=== PATIENT | female | born 1960 | race Caucasian/White ===

== ENCOUNTER → 2016-06-27 | Outpatient (CLI) | payer OTHER ==
--- NOTE | 2016-06-27 18:15 | DX ---
Lumbar Spine, 2 standing views History: Pain after high impact trauma Comparison: May 07, 2014 Findings: There is stable sclerosis and osteophyte formation involving the anterior-inferior corner o f L2. There is a stable minimal L1 compression deformity. Other vertebrae are stable without new comp ression deformity. Disk spaces maintain normal height. There is no spondylolisthesis. There is chroni c atherosclerotic calcification of the aorta. At the upper corner of the exam there appears to be a 2 .5 cm right lung base thin walled cyst versus gas-containing lesion in the liver. Impression:1. Stable lumbar spine since April 2014. 1. Right base lung cyst (not seen on chest x-ray August 2014) vs suspicious gas-containing lesion in t he dome of the liver. Consider CT of the chest and abdomen for further evaluation. Results called to Dr. Benavidez at 612 p.m.
--- NOTE | 2016-06-27 18:23 | DX ---
Thoracic Spine, 2 views History: Pain post cross training exercise Comparison: September 09, 2014 There is a new mild-moderate T9 compression fracture. There are stable old minor compressions of T6, T7 and T8. There is a chronic kyphosis. Impression: New T9 compression. Consider MRI to evaluate acuity and DEXA. Results discussed with Dr. Benavidez.
== END ==
LOC: FIMAGING 16:51
PROVIDERS: ATTEND Family Medicine
DX: S22.070A Wedge compression fracture of T9-T10 vertebra, initial encounter for closed fracture (principal); Y93.B9 Activity, other involving muscle strengthening exercises

== ENCOUNTER → 2016-06-30 | Outpatient (CLI) | payer OTHER ==
--- NOTE | 2016-06-30 16:43 | MR ---
MRI Thoracic Spine Without Contrast History: Back pain. Pain after crosstraining exercise. Abnormal x-ray. Comparison: Thoracic spine x-ray 27 June 2016. Technique: MRI is performed of the thoracic spine using a 3 [employer] MRI system. Sagittal, coronal, and axial imaging was obtained with standard imaging sequences. Findings: There is mild anterior wedge compression deformity of the T10 vertebral body involving the superior endplate anteriorly. There is bone marrow edema indicating this is acute. Degenerative endpl ate change is seen at T9-T10. There is mild chronic anterior wedge compression deformity of T9. No si gnificant spondylolisthesis. There is mild disk desiccation at T8-T9 and T9-T10. Thoracic spinal cord is normal in size and signal intensity. No significant spinal canal or neural foraminal encroachment . No significant disk bulge, protrusion, or extrusion. Impression: 1. Mild acute anterior wedge compression deformity of T10. Consider consultation with interventional radiology for kyphoplasty. 2. Mild chronic anterior wedge compression deformity of T9.
== END ==
LOC: FIMAGING 14:23
PROVIDERS: ATTEND Family Medicine
DX: S22.070A Wedge compression fracture of T9-T10 vertebra, initial encounter for closed fracture (principal)

== ENCOUNTER → 2016-06-30 | Outpatient (CLI) | payer OTHER ==
--- NOTE | 2016-06-30 11:02 | DX ---
DEXA Bone Mineral Densitometry Clinical Indications: Postmenopausal, T9 compression fracture, kidney stones, HRT Comparison: None Technique: Bone Mineral Densitometry (BMD) by Dual Energy X-Ray Absorptiometry (DEXA) was performed utilizing the [employer] scanner. The lumbar spine was evaluated in the AP projection. The bilat eral hips and forearm were evaluated in the AP projection. Vertebral fracture assessment was also pe rformed. AP Lumbar Spine: The L3 and L4 vertebral bodies were evaluated. L1 and L2 are excluded due to poste rior element degenerative sclerosis. BMD: 0.857 gm/cm2 T-score: -2.9 SD Z-score: -2.3 SD AP Left Hip: Neck BMD: 0.736 gm/cm2 T-score: -2.2 SD Z-score: -1.3 SD AP Right Hip: Neck BMD: 0.729 gm/cm2 T-score: -2.2 SD Z-score: -1.3 SD AP Left Forearm, 05/30: BMD: 0.875 gm/cm2 T-score: 0 SD Z-score: 0.5 SD Vertebral Fracture Assessment: There are old minor compressions of T7, T8, T9, T10 and T12... Athero sclerotic calcification of the abdominal aorta likely increases lumbar BMD. Conclusion: Considering the lowest measured site, the patient is osteoporotic and at increased risk for fracture. Considering the negative Z score in the lumbar spine coupled with a history of recent T 9 fracture and kidney stones, it would be worthwhile to exclude hyperparathyroidism and other common causes of hypercalciuria along with other secondary causes for bone loss. This patient may be a good candidate for pharmacologic intervention. The ten year FRAX risk for any major osteoporotic fracture is 15.3% and for a hip fracture is 2.6%. Recommend follow-up DEXA scanning in one year for reevaluation and to assess the rate of bone loss in this patient
== END ==
LOC: BRMIMAGING 10:02
PROVIDERS: ATTEND Family Medicine
DX: M81.0 Age-related osteoporosis without current pathological fracture (principal); Z79.890 Hormone replacement therapy; Z78.0 Asymptomatic menopausal state

== ENCOUNTER 2016-07-05 11:09 | Day surgery (SDC) | payer OTHER ==
[2016-07-05] MEDS ORDERED: DEXAMETHASONE 10 MG/ML VIAL IVP ONE (11:29)
[2016-07-05] MEDS ORDERED: NS 1,000 ML IV SCH (11:30)
[2016-07-05] MEDS ORDERED: DEXMEDETOMIDINE HCL 200 MCG in NS 50 ML IV SCH (12:00)
[2016-07-05] MEDS ORDERED: CLINDAMYCIN 600 MG/DEXTROSE 50 ML IV ONE (12:00)
[2016-07-05 12:09] LABS: % IMMATURE GRANULYOCYTES 0.4 % (0.0-1.1); ABSOLUTE IMMATURE GRANULOCYTES 0.03 10^3/uL (0.00-0.10); ADD DIFF? NO; ADD MORPH? NO; ADD SCAN? NO; ATYPICAL LYMPHOCYTE FLAG 10 (0-99); FRAGMENT RBC FLAG 0 (0-99); HEMATOCRIT 43.5 % (38.0-47.0); HEMOGLOBIN 14.4 g/dL (12.6-16.3); LEFT SHIFT FLG 0 (0-99); LIPEMIA HEMOLYSIS FLAG 80 (0-99); MEAN CELL HEMOGLOBIN 30.6 pg (27.9-34.1); MEAN CELL HEMOGLOBIN CONCENTR. 33.1 g/dL (32.4-36.7); MEAN CELL VOLUME 92.6 fL (81.5-99.8); MEAN PLATELET VOLUME 9.3 fL (8.7-11.7); PLATELET CLUMPS FLAG 0 (0-99); PLATELET COUNT 270 10^3/uL (150-400); RED CELL DISTRIBUTION WIDTH 13.9 % (11.5-15.2)
[2016-07-05 12:27] LABS: PROTIME(PATIENT) 13.1 SEC (12.0-15.0)
[2016-07-05] MEDS ORDERED: FLUMAZENIL 0.5 MG/5 ML MDV IVP ONE (13:04)
[2016-07-05] MEDS ORDERED: NALOXONE HCL 0.4 MG/ML INJ ONE (13:04)
[2016-07-05] MEDS ORDERED: fentaNYL 100 MCG/2 ML INJ ONE (13:05)
[2016-07-05] MEDS ORDERED: MIDAZOLAM 2 MG/2 ML VIAL ONE (13:05)
[2016-07-05] MEDS ORDERED: BUPIVACAINE 0.5% 30 ML SDV ONE (14:12)
[2016-07-05] MEDS ORDERED: LIDOCAINE 1% 30 ML SDV ONE (14:12)
[2016-07-05] MEDS ORDERED: oxyCODONE IR 5 MG TAB PO PRN (16:25)
[2016-07-05] MEDS ORDERED: oxyCODONE IR 5 MG TAB ONE (16:27)
--- NOTE | 2016-07-05 19:06 | IR ---
T10 percutaneous vertebral augmentation Indication: The patient had acute injury doing a CrossFit class 3 weeks ago. Acute onset of severe u pper back pain, that has not changed. Pain ranges from 4-10 out of 10 depending on activity. The wors t activity that instigates pain is rolling left to right while in supine position, and sitting up fro m supine position. Patient had a bone density study recently, showing that she is osteoporotic. MRI of the thoracic spin e confirms T10 compression fracture. There is a little bit of bone marrow edema along the inferior en dplate of T9, however, this is thought to be caused by subjacent inflammation and degenerative disk d isease. Informed consent: Obtained from the patient. Risks and benefits were discussed. Crosscutting Measure: Patient's current list of medications including all known prescriptions, over- the-counters, herbals, and vitamin/mineral/dietary supplements are reviewed. Medications' name, dosa ge, frequency, and route of administration are confirmed. Patient is a non-smoker. Prophylactic Antibiotic: Clindamycin 600 mg was ordered and administered for antimicrobial prophylaxi s. Patient is ALLERGIC to penicillin. Discontinuation of Prophylactic Antibiotic: Prophylactic antibiotic was given within 4 hours prior t o incision. There was an order to discontinue the antibiotic within 24 hours of procedure end time. VTE Prophylaxis: VTE prophylaxis is not medically necessary for this procedure. Technique: Patient is placed in prone position. A "timeout" procedure was performed to identify the correct patient and the correct procedure. 1% Xylocaine was used for local anesthetic. All elemen ts of maximal sterile barrier technique including cap, mask, sterile gown, sterile gloves, large ster ile sheet, hand hygiene, and 2% chlorhexidine for cutaneous antisepsis, followed. When ultrasound is used, sterile gel and probe covers are used. Via left transpedicular approach, DeFine kyphoplasty needle was inserted into the T10 vertebral body. Augmentation was performed using a curetting device, traversing across the contralateral side of the vertebral body. 5 mL of cement was subsequently injected into the vertebral body after the curetting and bone augment ation. There is excellent fill of the lower two thirds of the vertebral body. There is a little bit o f the fill of the superior one third, and then the cement extravasated into the T9-T10 intervertebral disk space. Procedure was then stopped. I think there is a sufficient amount of cement in the superi or aspect of the vertebral body to alleviate pain. There is some extravasation of the cement posteriorly, but that is mostly confined within the posteri or cortex of T10. Patient tolerated the procedure well. Medication: Precedex, 0.2 mcg/kg/h, Versed 2.5 mg, fentanyl 150 mcg, Decadron 10 mg. 1:30 - 3:03 p.m. Fluoroscopy: 16.3 minutes, 26 images Impression: 1. T10 vertebral augmentation performed. 2. Presenting pain was somewhat reproduced during the procedure. I am hopeful that this will help the patient significantly. Plan: Recovery for 2 hours. DC home later today.
== END 2016-07-05 17:00 | disposition home or self-care (01) ==
LOC: FIMAGING 11:09
PROVIDERS: ATTEND Family Medicine
PROC: 0PU43JZ Supplement Thoracic Vertebra with Synthetic Substitute, Percutaneous Approach (ICD-10-PCS; principal; 2016-07-05 15:23)
DX: S22.070A Wedge compression fracture of T9-T10 vertebra, initial encounter for closed fracture (principal); Y93.B9 Activity, other involving muscle strengthening exercises; M54.5 Low back pain; M81.0 Age-related osteoporosis without current pathological fracture; E28.319 Asymptomatic premature menopause
CPT/HCPCS: J2250; J2310; J3010

== ENCOUNTER 2016-12-19 08:54 | Emergency (ER) | payer OTHER ==
--- NOTE | 2016-12-19 10:12 | EDPHY ---
H & P Stated Complaint: R knee & shoulder injury with osteoporosis HPI/ROS: Chief complaint: Trip and fall with right shoulder and knee pain History of present illness: This is a 56-year-old female who presents to the emergency department for evaluation after sustaining a trip and fall last night injuring her right shoulder and knee. Patient reports she tripped over her dogs. She reports minimal pain in the shoulder, it is more of a soreness, she is moving it and using it with out difficulty. Her primary concern is her right knee pain. She reports pain on the anterior part of her knee. It makes it difficult to move and ambulate. She denies other associated signs or symptoms including no open wounds, no abnormal coolness or paresthesias in the extremity. She denies trauma to the rest of the body. There were no preceding events such as syncope and there was no loss of consciousness with the fall. Review of systems: A 10 point review of systems was obtained and other than described above was negative - Personal History Current Tetanus/Diphtheria Vaccine: Unsure Current Tetanus Diphtheria and Acellular Pertussis (TDAP): Unsure - Medical/Surgical History Hx Asthma: Yes Hx Chronic Respiratory Disease: No Hx Diabetes: No Hx Cardiac Disease: No Hx Renal Disease: No Hx Cirrhosis: No Hx Alcoholism: No Hx HIV/AIDS: No Hx Splenectomy or Spleen Trauma: No Other PMH: osteoporosis, asthma, nerve damage right leg - Social History Smoking Status: Former smoker Constitutional: Initial Vital Signs Temperature (C) 36.6 C 12/19/16 08:56 Heart Rate 72 12/19/16 08:56 Respiratory Rate 16 12/19/16 08:56 Blood Pressure 126/74 H 12/19/16 08:56 O2 Sat (%) 97 12/19/16 08:56 O2 Delivery Mode Room Air Allergies/Adverse Reactions: Penicillins Allergy (Verified 09/09/14 08:48) Home Medications: Medication Instructions Recorded Hydrocodone/Acetaminophen [Vicodin 1 tab PO Q4-6PRN PRN 09/09/14 5-300 mg Tablet] traZODone [traZODONE 50MG (RX)] 50 mg PO HS 09/09/14 Fiber 1 tab PO DAILY 07/04/16 Fish Oil 1 cap PO DAILY 07/04/16 Hrt Base 1 patch .ROUTE DAILY 07/04/16 Lyrica 50mg (*) 50 mg PO TID 07/04/16 Multivitamin 1 tab PO DAILY 07/04/16 Prilosec 20 mg 20 mg PO DAILY 07/04/16 Vitamin D2 1 tab PO DAILY 07/04/16 Medical Decision Making - Diagnostics Imaging Results: Imaging Impressions Knee X-Ray 12/19/16 09:38 Impression: No acute osseous findings. Shoulder X-Ray 12/19/16 09:38 Impression: No acute findings in the shoulder. Procedures: Procedure: Splint placement. A Velcro knee splint splint was applied. After application of the splint I returned and re-examined the patient. The splint was adequately immobilizing the joint and distal to the splint the patient's circulation and sensation was intact. Patient is given crutches. She is given instructions. She is observed ambulating and states she feels comfortable and appears steady. ED Course/Re-evaluation: Patient seen under the supervision of my secondary supervising physician Dr. Carson Whitney. Patient presents to the emergency department after a mechanical trip and fall injuring her right shoulder and knee. Minimal findings on shoulder. Her knee is tender. Her extremities are neurovascularly intact. X-rays are negative. By history and physical exam no evidence of trauma to other parts of the body. Given persistent knee pain she is placed in a knee immobilizer and given crutches. She is given instructions on how to use them and is ambulated through the emergency department. She states she feels comfortable in the knee immobilizer and using crutches. She is discharged home. She is referred to Orthopedics for recheck. Return precautions are given. Patient voiced understanding and agreement with plan. Differential Diagnosis: Included but not limited to fracture, sprain or strain, contusion, meniscal injury Departure - Departure Disposition: Home, Routine, Self-Care Clinical Impression: Knee pain, Shoulder pain Condition: Good Instructions: Knee Pain (ED) Additional Instructions: Follow-up with orthopedics this week for recheck If symptoms worsen or new symptoms develop return to the emergency department for recheck Referrals: Lauren Benavidez MD [Primary Care Provider] - As per Instructions Adin Vicente MD [Medical Doctor] - As per Instructions
[2016-12-19 11:16] VITALS: BP 122/58; PULSE 82; RESP 18; TEMP 98.2; O2SAT 96
== END 2016-12-19 11:16 | disposition home or self-care (01) ==
DX: S49.91XA Unspecified injury of right shoulder and upper arm, initial encounter (principal); S89.91XA Unspecified injury of right lower leg, initial encounter; J45.909 Unspecified asthma, uncomplicated; Z87.891 Personal history of nicotine dependence; W01.0XXA Fall on same level from slipping, tripping and stumbling without subsequent striking against object, initial encounter
CPT/HCPCS: L1830

== ENCOUNTER → 2017-02-20 | Outpatient (CLI) | payer OTHER | LOC: FIMAGING 10:08 | PROVIDERS: ATTEND Family Medicine | DX: M48.54XA Collapsed vertebra, not elsewhere classified, thoracic region, initial encounter for fracture (principal); M47.894 Other spondylosis, thoracic region; M50.322 Other cervical disc degeneration at C5-C6 level; Z98.890 Other specified postprocedural states ==

== ENCOUNTER → 2017-05-17 | Outpatient (CLI) | payer OTHER | LOC: FIMAGING 14:52 | PROVIDERS: ATTEND Family Medicine | DX: M51.36 Other intervertebral disc degeneration, lumbar region (principal) ==

== ENCOUNTER → 2017-09-13 | Outpatient (CLI) | payer OTHER | LOC: FIMAGING 09:23 | PROVIDERS: ATTEND Family Medicine | DX: M25.561 Pain in right knee (principal); M25.461 Effusion, right knee ==

== ENCOUNTER → 2017-09-18 | Outpatient (CLI) | payer OTHER | LOC: FIMAGING 13:35 | PROVIDERS: ATTEND Nurse Practitioner Women's Health | DX: Z12.31 Encounter for screening mammogram for malignant neoplasm of breast (principal) ==

== ENCOUNTER → 2017-12-06 | Outpatient (CLI) | payer OTHER | LOC: FLAB 10:07 | PROVIDERS: ATTEND Physician Assistant | DX: M79.662 Pain in left lower leg (principal); S81.002A Unspecified open wound, left knee, initial encounter ==

== ENCOUNTER → 2018-10-02 | Outpatient (CLI) | payer OTHER | LOC: FIMAGING 08:50 | PROVIDERS: ATTEND Nurse Practitioner Women's Health | DX: Z12.31 Encounter for screening mammogram for malignant neoplasm of breast (principal); Z13.820 Encounter for screening for osteoporosis; M81.0 Age-related osteoporosis without current pathological fracture ==